=== PATIENT | male | born 1980 | race Hispanic/Latino ===

== ENCOUNTER 2017-04-02 02:26 | Emergency (ER) | payer SELFPAY ==
[2017-04-02 03:10] LABS: #Basophils 0.1 thou/uL (0.0-0.2); #Eosinphils 0.7 thou/uL (0.0-0.7); #Lymphocytes 3.2 thou/uL (1.20-3.40); #Monocytes 0.9 thou/uL (0.11-0.59); #Neutrophils 9.3 thou/uL (1.40-6.50); %Basophils 0.7 % (0.0-1.0); %Eosinophils 4.7 % (0.0-10.0); %Lymphocytes 22.7 % (21.0-51.0); %Monocytes 6.2 % (0.0-10.0); Mean Platelet Volume 8.3 fL (7.4-10.4); White Blood Cell (WBC) Count 14.1 thou/uL (4.8-10.8)
[2017-04-02] MEDS ORDERED: Ketorolac Tromethamine 30 MG/ML VIAL ONE (03:23)
[2017-04-02] MEDS ORDERED: Ondansetron HCl/PF 4 MG/2 ML Vial ONE (03:23)
[2017-04-02 03:34] LABS: ALT (SGPT) 31 U/L (8-55); AST (SGOT) 20 U/L (5-34); Alkaline Phosphatase 81 U/L (40-150); Anion Gap 11 mmol/L (10-20); BUN (Urea Nitrogen) 21 mg/dL (8.9-20.6); Bilirubin, Total 0.4 mg/dL (0.2-1.2); Calc. Creatinine Clearance 0 mL/min (70-130); Calcium 9.4 mg/dL (7.8-10.44); Carbon Dioxide 25 mmol/L (22-29); Chloride 104 mmol/L (98-107); Estimated GFR-MDRD 79; Globulin 3.3 g/dL (2.4-3.5); Lipase 339 U/L (8-78); Protein, Total 7.5 g/dL (6.0-8.3)
[2017-04-02] MEDS ORDERED: Morphine 10 MG/ML VIAL ONE (04:17)
[2017-04-02 05:09] LABS: Bilirubin Negative (Negative); Blood, Urine Large (Negative); Glucose, Urine (Dipstick) Negative (Negative); Ketone, Urine Negative (Negative); Nitrite Negative (Negative); Protein, Urine (Dipstick) Negative (Neg-Trace); Urobilinogen 0.2 mg/dL (0.2-1.0)
[2017-04-02 05:12] LABS: Bacteria/HPF None Seen HPF (None Seen); Hyaline Casts/LPF 0-3 HYALINE CAST LPF (0-3 Hyaline); RBC/HPF GREATER THAN 50-TNTC HPF (0-3); Squamous Epithelial None Seen HPF (0-3); WBC/HPF 0-3 HPF (0-3)
--- NOTE | 2017-04-02 08:22 | CT ---
PRELIMINARY REPORT/[facility]/EMERGENCY AFTER HOURS PROCEDURE: EXAM: CT Abdomen and Pelvis Without Intravenous Contrast CLINICAL HISTORY: 36 years old, male; Pain; Abdominal pain; Flank; Left; Patient HX: Pt reports to ed for abd pain leeann t started this am. Pt states pain is in left flank and radiates to left lower abd. Pt also reports d ifficulty urinating. TECHNIQUE: Axial computed tomography images of the abdomen and pelvis without intravenous contrast. Coronal reformatted images were created and reviewed. COMPARISON: No relevant prior studies available. FINDINGS: Lower thorax: [place] 6 mm left lower lobe nodular density along the hemidiaphragm. Few other similar nodular densities at the terminus of bronchovascular structures measuring 3-6 mm, nonspecific. Smal l hiatal hernia. ABDOMEN: Liver: Normal. Gallbladder and bile ducts: Unremarkable. Pancreas: Normal. Spleen: Normal. Adrenals: Normal. Kidneys and ureters: 3 mm and a couple of punctate nonobstructing stones in the right kidney. 5 mm n onobstructive stone or adjacent stones in the upper pole of the left kidney. 4 mm stone in the dista l left ureter just proximal to the UVJ resulting in mild hydroureteronephrosis and periureteral/moncho nephric fat stranding. Stomach and bowel: Unremarkable. No obstruction. Appendix: No findings to suggest acute appendicitis. PELVIS: Bladder: Unremarkable. Reproductive: Unremarkable. ABDOMEN and PELVIS: Intraperitoneal space: No free air. No significant fluid collection. Bones/joints: Unremarkable. No acute fracture. Soft tissues: Unremarkable. Vasculature: Unremarkable. Lymph nodes: Unremarkable. No enlarged lymph nodes. IMPRESSION: Distal left ureteral stone with mild hydroureteronephrosis and perinephric stranding. Few small nodular densities in the lung bases. Thank you for allowing us to participate in the care of your patient. Dictated and Authenticated by: Tony Juan MD 04/02/2017 3:55 AM Central Time ([place] \T\ [place]) FINAL REPORT EMERGENT AFTER HOURS CT ABDOMEN AND PELVIS: DATE: 04/02/17. HISTORY: Abdominal pain that started this morning. The patient complains of left flank pain with radiation o f pain to the left lower abdomen. Difficulty urinating. IMPRESSION: 1. Partially obstructing distal left ureteral calculus measuring 4 mm. 2. Nonobstructing bilateral renal calculi. No right ureteral calculus is present. 3. No CT evidence of appendicitis. 4. Small hiatal hernia. 5. Approximately 4 mm pulmonary nodule in the region of the lingula as well as smaller less than 4 mm pulmonary nodule posterior left lung base which are nonspecific. 6. Findings are in agreement with the preliminary report by [facility]. POS: DIANA
== END 2017-04-02 05:31 | disposition home or self-care (01) ==
LOC: ERS 02:26
DX: N13.2 Hydronephrosis with renal and ureteral calculous obstruction (principal)
CPT/HCPCS: 74176; 80053; 81003; 81015; 83690; 85025; 96361; 96374; 96375; J1885; J2270; J2405